=== PATIENT | female | born 1980 | race Caucasian/White ===

== ENCOUNTER 2021-05-26 18:16 | Emergency (ER) | payer BC ==
[2021-05-26 18:51] LABS: Absolute Neutrophil Ct (ANC) 6.85 (1.4-6.9); Basophil (Absolute #) 0.02 (0-0.4); Eosinophil % 0.1 % (0.00-5.0); Eosinophil (Absolute #) 0.01 (0-0.5); Hematocrit 45.9 % (35-47); Hemoglobin 15.5 gm/dl (12.0-16.0); Lymphocyte (Absolute #) 0.93 (1.0-4.6); Lymphocytes % 11.6 % (24.0-44.0); Mean Cell Volume 92.4 fl (78-100); Mean Corpuscular Hemoglobin 31.2 pg (26-32); Mean Corpuscular Hgb Concent. 33.8 g/dl (32-36); Mean Platelet Volume 9.9 fl (7.5-11.0); Monocyte (Absolute #) 0.22 (0.0-1.3); Monocytes % 2.7 % (0.0-12.0); Neutrophil % 85.4 % (36.0-66.0); Platelet Count 258 K/mm3 (150-450); Red Blood Count 4.97 M/mm3 (4.1-5.4); Red Cell Distribution Width 13.1 % (11.5-14.0)
[2021-05-26 18:57] LABS: Appearance CLEAR (CLEAR); Bilirubin NEGATIVE (NEGATIVE); Blood NEGATIVE Ery/ul (0-5); Epithelial Cells RARE /HPF (FEW); Glucose NEGATIVE (NEGATIVE); Ketones NEGATIVE (NEGATIVE); Leukocyte Esterase TRACE (NEGATIVE); Nitrite NEGATIVE (NEGATIVE); Protein,Urine Dip NEGATIVE (Negative); Specific Gravity 1.006 (1.005-1.025); Urobilinogen NEGATIVE mg/dL (0-1)
[2021-05-26 19:12] LABS: INFLUENZA A NEGATIVE (NEGATIVE); INFLUENZA B NEGATIVE (NEGATIVE)
[2021-05-26 19:16] LABS: ALBUMIN 4.6 g/dL (3.5-5.0); ALKALINE PHOSPHATASE 82 U/L (38-126); ANION GAP 15.2 MEQ/L (5-15); BLOOD UREA NITROGEN 4 mg/dL (7-17); CHLORIDE 108 mmol/L (98-107); Calcium 9.5 mg/dL (8.4-10.2); Carbon Dioxide 21 mmol/L (22-30); Creatinine 1 0.54 mg/dL (0.52-1.04); EST GLOMERULAR FILTRATION RATE > 60.0 ML/MIN; Glucose 141 mg/dL (74-106); Potassium 3.8 mmol/L (3.5-5.1); SGOT/AST 24 U/L (14-36); SGPT/ALT 28 U/L (0-35); SODIUM 141 mmol/L (137-145); Total Protein 7.8 g/dL (6.3-8.2)
--- NOTE | 2021-05-26 19:20 | ERPHSYRPT ---
- History of Present Illness Time Seen by Provider: 05/26/21 18:30 Source: patient Exam Limitations: no limitations Patient Subjective Stated Complaint: Cough Triage Nursing Assessment: Patient ambulated back to ED and transferred self to bed. Patient A+O X3. Patient's skin pink, warm and dry. Patient complains of cough, occasional SOB and vomited for one week . Patient was seen yesterday at [facility] and tested for Covid which was negative and given an inhaler and medrol dose blade. Patient denies pain or discomfort. Lungs clear a/p martin. Physician History: Patient is a 40-year-old female presents to our ED with complaint of generalized weakness. Symptoms have been going on for approximately 1 week. Patient went t o an [facility]. She was treated with an inhaler and a Medrol Dosepak. Patient states this helped her symptoms. However patient is still coughing. No fever. Patient states she vomited several times last week. Patient tested negative for COVID. Symptoms are mild to moderate in intensity. No specific worsening or improving factors. [place] states he is otherwise healthy. She is a smoker. Patient voices no other complaints or concerns at this time. Timing/Duration: today Severity: moderate Modifying Factors: Improves With: nothing Associated Symptoms: vomiting, cough, No abdominal pain, No shortness of breath (Patient denies shortness of breath at this time.), No chest pain, No fever, No loss of appetite, No malaise, No rash, No syncope, No seizure, No weakness Allergies/Adverse Reactions: No Known Drug Allergies Allergy (Unverified 05/26/21 18:25) Hx Influenza Vaccination/Date Given: No Hx Pneumococcal Vaccination/Date Given: No Immunizations Up to Date: Yes Travel Risk - International Travel Have you traveled outside of the country in past 3 weeks: No - Coronavirus Screening Symptoms: Cough: New Onset, Shortness of Breath, Vomiting/Diarrhea Close contact with a COVID-19 positive Pt in past 14-21 Days: No - Vaccine Status Have you recieved a Covid-19 vaccination: No - Review of Systems Constitutional: No Symptoms, No Fever, No Chills Eyes: No Symptoms Ears, Nose, & Throat: No Symptoms Respiratory: No Symptoms, No Cough, No Dyspnea Cardiac: No Symptoms, No Chest Pain, No Edema, No Syncope Abdominal/Gastrointestinal: No Symptoms, No Abdominal Pain, No Nausea, No Vomiting, No Diarrhea Genitourinary Symptoms: No Symptoms, No Dysuria Musculoskeletal: No Symptoms, No Back Pain, No Neck Pain Skin: No Symptoms, No Rash Neurological: No Symptoms, No Dizziness, No Focal Weakness, No Sensory Changes Psychological: No Symptoms Endocrine: No Symptoms Hematologic/Lymphatic: No Symptoms Immunological/Allergic: No Symptoms All Other Systems: Reviewed and Negative - Past Medical History Pertinent Past Medical History: No Neurological History: No Pertinent History ENT History: No Pertinent History Cardiac History: No Pertinent History Respiratory History: No Pertinent History Endocrine Medical History: No Pertinent History Musculoskeletal History: No Pertinent History GI Medical History: No Pertinent History History: No Pertinent History Psycho-Social History: No Pertinent History Female Reproductive Disorders: No Pertinent History - Past Surgical History Past Surgical History: Yes Neuro Surgical History: No Pertinent History Cardiac: No Pertinent History Respiratory: No Pertinent History Gastrointestinal: Cholecystectomy Genitourinary: No Pertinent History Musculoskeletal: Orthopedic Surgery Female Surgical History: Tubal Ligation Other Surgical History: back and left arm sugery - Social History Smoking Status: Current every day smoker How long have you smoked: years Exposure to second hand smoke: Yes Drug Use: none Patient Lives Alone: No - Female History Hx Last Menstrual Period: last month Hx Now: No - Nursing Vital Signs Nursing Vital Signs: Initial Vital Signs Temperature 98.3 F 05/26/21 18:26 Pulse Rate 102 H 05/26/21 18:26 Respiratory Rate 18 05/26/21 18:26 Blood Pressure 137/77 05/26/21 18:26 O2 Sat by Pulse Oximetry 100 05/26/21 18:26 Pain Scale Pain Intensity 0 - Physical Exam General Appearance: no apparent distress, alert Eye Exam: PERRL/EOMI, eyes nml inspection Ears, Nose, Throat Exam: normal ENT inspection, TMs normal, pharynx normal, moist mucous membranes Neck Exam: normal inspection, non-tender, supple, full range of motion Respiratory Exam: normal breath sounds, lungs clear, airway intact, No respiratory distress Cardiovascular Exam: regular rate/rhythm, normal heart sounds, normal peripheral pulses Gastrointestinal/Abdomen Exam: soft, normal bowel sounds, No tenderness, No mass Back Exam: normal inspection, normal range of motion, No CVA tenderness, No vertebral tenderness Extremity Exam: normal inspection, normal range of motion, pelvis stable Neurologic Exam: alert, oriented x 3, cooperative, normal mood/affect, nml cerebellar function, nml station & gait, sensation nml, No motor deficits Skin Exam: normal color, warm, dry, No rash Lymphatic Exam: No adenopathy SpO2 Interpretation: normal SpO2: 100 O2 Delivery: Room Air - Course Nursing assessment & vital signs reviewed: Yes - Radiology Exams Chest X-ray Interpretation: Interpreted by me (Subtle right middle lobe infiltrate versus atelectasis. Normal cardiac silhouette. Intact bony thorax.) Ordered Tests: Active Orders 24 hr Category Date Time Status CHEST 1 VIEW (PORTABLE) Stat Exams 05/26/21 18:27 Taken CBC W DIFF Stat Lab 05/26/21 18:45 Completed CMP Stat Lab 05/26/21 18:45 Received INFLUENZA A+B JUAREZ Stat Lab 05/26/21 18:36 Completed UA W/RFX UR CULTURE Stat Lab 05/26/21 18:27 Completed Lab/Rad Data: Laboratory Result Diagrams 05/26/21 18:45 Laboratory Results 05/26/21 05/26/21 05/26/21 Range/Units 18:45 18:36 18:27 WBC 8.0 (4.0-10.5) K/mm3 RBC 4.97 (4.1-5.4) M/mm3 Hgb 15.5 (12.0-16.0) gm/dl Hct 45.9 (35-47) % MCV 92.4 (78-100) fl MCH 31.2 (26-32) pg MCHC 33.8 (32-36) g/dl RDW 13.1 (11.5-14.0) % Plt Count 258 (150-450) K/mm3 MPV 9.9 (7.5-11.0) fl Gran % 85.4 H (36.0-66.0) % Eos # (Auto) 0.01 (0-0.5) Absolute Lymphs (auto) 0.93 L (1.0-4.6) Absolute Monos (auto) 0.22 (0.0-1.3) Lymphocytes % 11.6 L (24.0-44.0) % Monocytes % 2.7 (0.0-12.0) % Eosinophils % 0.1 (0.00-5.0) % Basophils % 0.2 (0.0-0.4) % Absolute Granulocytes 6.85 (1.4-6.9) Basophils # 0.02 (0-0.4) Urine Color YELLOW (YELLOW) Urine Appearance CLEAR (CLEAR) Urine pH 6.0 (5-6) Ur Specific [place] 1.006 (1.005-1.025) Urine Protein NEGATIVE (Negative) Urine Ketones NEGATIVE (NEGATIVE) Urine Blood NEGATIVE (0-5) Seth/ul Urine Nitrite NEGATIVE (NEGATIVE) Urine Bilirubin NEGATIVE (NEGATIVE) Urine Urobilinogen NEGATIVE (0-1) mg/dL Ur Leukocyte Esterase TRACE (NEGATIVE) Urine WBC (Auto) 3-5 (0-5) /HPF Urine RBC (Auto) NONE (0-2) /HPF U Epithel Cells (Auto) RARE (FEW) /HPF Urine Bacteria (Auto) NONE (NEGATIVE) /HPF Urine Culture Reflexed NO (NO) Urine Glucose NEGATIVE (NEGATIVE) mg/dL Influenza Type A Ag NEGATIVE (NEGATIVE) Influenza Type B Ag NEGATIVE (NEGATIVE) - Progress Progress: improved Progress Note: X-ray suggestive of possible right middle lobe infiltrate. Otherwise negative chest x-ray. Laboratory work-up essentially nonremarkable. UA negative. We will discharge patient with a prescription for Z-Blade. Patient agrees to follow- up with primary care doctor within 48 hours for reevaluation. Patient voices no other complaints concerns at this time. Patient states he is ready for discharge. Portions of this note were created with voice recognition technology. There may be grammatical, spelling, punctuation or sound alike errors 05/26/21 19:24 Counseled pt/family regarding: lab results, diagnosis, need for follow-up, rad results - Departure Departure Disposition: Home Clinical Impression: Cough, Fatigue, Pneumonia Condition: Stable Critical Care Time: No Referrals: CLAIR FAIRBANKS NP [Primary Care Provider] - Follow up/PCP as directed Additional Instructions: Discharge/Care Plan OSMAN RAJPUT was seen on 05/26/21 in the Emergency Room. The patient was counseled regarding Diagnosis,Lab results, Imaging studies, need for follow up and when to return to the Emergency Room. Prescriptions given: Discharge Note I have spoken with the patient and/or caregivers. I have explained the patient's condition, diagnosis and treatment plan based on the information available to me at this time. I have answered the patient's and/or caregiver's questions and addressed any concerns. The patient and/or caregivers have as good understanding of the patient's diagnosis, condition and treatment plan as can be expected at this point. The vital signs have been stable. The patient's condition is stable and appropriate for discharge from the emergency department. The patient will pursue further outpatient evaluation with the primary care physician or other designated or consulting physician as outlined in the discharge instructions. The patient and/or caregivers are agreeable to this plan of care and follow-up instructions have been explained in detail. The patient an d/or caregivers have received these instruction. The patient/and or caregivers are aware that any significant change in condition or worsening of symptoms should prompt an immediate return to this or the closest emergency department or call 911. Prescriptions: Azithromycin 250 mg [Zithromax 250 MG TABLET] 250 mg PO ZPACK #6 tablet
[2021-05-26 19:33] VITALS: BP 126/83; PULSE 80; O2SAT 98
--- NOTE | 2021-05-27 08:40 | XRAY ---
Indication: Flu like symptoms 2 weeks. Weakness. Comparison: April 11, 2019. Portable chest is now clear again with incidental tiny left upper lobe calcified granuloma. Heart and mediastinal structures within normal limits. Bony thorax intact. Impression: Nonacute chest with chronic features.
== END 2021-05-26 19:33 | disposition home or self-care (01) ==
LOC: ED 18:16
DX: J18.9 Pneumonia, unspecified organism (principal); R05.9 Cough, unspecified; R53.83 Other fatigue; R11.11 Vomiting without nausea; Z72.0 Tobacco use
CPT/HCPCS: 36415; 71045; 80053; 81001; 85025; 87400; 99284

== ENCOUNTER 2021-10-27 10:32 | Day surgery (SDC) | payer BC ==
[~2021-10-27 10:32] MED LIST: Lactated Ringers 1,000 ML IV SCH
--- NOTE | 2021-10-27 10:57 | HP ---
PROCEDURE DATE: 10/27/2021 HISTORY OF PRESENT ILLNESS: Patient is a 41 y/o with last colonoscopy 10 years ago. Has had polyps. She had a hemorrhoid. She had some transient rectal bleeding. No more bleeding now. No pain. No change in bowel movements currently. Family history of colon cancer. CURRENT MEDICATIONS: None on a regular basis. ALLERGIES: FOOD ALLERGIES. NKDA. PAST SURGICAL HISTORY: She had a cholecystectomy and arm surgery, back surgery. SOCIAL HISTORY: Denies alcohol abuse. REVIEW OF SYSTEMS: 14 systems reviewed. No chest pain or palpitations. Other systems negative or noncontributory other than above and per preadmission questionnaire. PHYSICAL EXAMINATION: GENERAL: No acute distress. HEENT: Sclerae nonicteric. NECK: No JVD. CHEST: Equal excursion. Nonlabored breathing. CVS: Regular rate and rhythm. ABDOMEN: Soft. No peritoneal signs. EXTREMITIES: No significant edema. NEURO: Alert and oriented, moving extremities symmetrically. PSYCH: Full mood and affect. RECTAL: Deferred until time of endoscopy exam. IMPRESSION: 1. HISTORY OF POLYPS. NEED FOR FOLLOW-UP SCREENING COLONOSCOPY. FEEL SHE IS A CANDIDATE. Shown the risk sheet. Explained the procedure in detail including bleeding; infection; risk of bowel injury or perforation possibly requiring open procedure; risk of missed or nondiagnosis or incomplete exam possibly requiring barium enema or other studies or procedures; general risk of anesthesia or sedation; risk of bowel prep, but not limited to. Consent obtained. Will proceed with outpatient follow-up screening colonoscopy.
[2021-10-27] MEDS ORDERED: Xylocaine-Mpf 2% 5 Ml Vial ONE (12:38)
[2021-10-27] MEDS ORDERED: DIPRIVAN 200 MG/20 ML IV ONE ×2 (12:38→12:52)
[2021-10-27 13:52] VITALS: O2SAT 99
[2021-10-27 14:09] VITALS: BP 109/62; PULSE 72
--- NOTE | 2021-10-28 14:44 | OP ---
SURGERY DATE: 10/27/2021 SURGERY TIME: 1242 PREOPERATIVE DIAGNOSIS: 1. HISTORY OF POLYPS. POSTOPERATIVE DIAGNOSIS: 1. MULTIPLE COLON POLYPS. 2. DIVERTICULOSIS. 3. FAIR BOWEL PREP. 4. ASA II. 5. WITHDRAWAL TIME APPROXIMATELY 12 MINUTES. PROCEDURE: 1. Colonoscopy to cecum. 2. Hot snare polypectomy transverse colon polyps X 2. 3. Hot biopsy polypectomy of the sigmoid colon, one was removed in piecemeal fashion in 3 small pieces. 4. Hot biopsy polypectomy of 3 additional sigmoid colon polyps. 5. Hot biopsy polypectomy of 2 small rectal polyps X 2. 6. Cold biopsy of patchy area of inflammation vs prep irritation sigmoid colon. SURGEON: Dr. Tyler Faulkner. ANESTHESIA: MAC. ESTIMATED BLOOD LOSS: Minimal. INDICATIONS: As noted above. Risks and benefits explained in detail, but not limited to. Consent obtained. DESCRIPTION OF PROCEDURE AND FINDINGS: The patient as taken to the OR. MAC anesthesia induced. After official time-out, no disagreement in planned procedure. Digital rectal exam did not reveal any rectal masses. Video colonoscope inserted and passed up through the tortuous sigmoid, descending, transverse, and ascending colon. With external pressure, the scope was passed to the sigmoid, descending, transverse, ascending colon and cecum. Appendiceal orifice was not well visualized. Prep overall was fair with liquidy semi-solid stool suction irrigated as clear as possible. The scope was slowly, carefully withdraw, almost 12 minutes. Two polyps about 3.5-4 mm in size removed with hot snare polypectomy and brief bursts of cautery. Good hemostasis was noted. Staff said they were retrieved. Scope pulled back to the sigmoid colon. Left colon did have some diverticulosis. Scope pulled back to sigmoid colon. There was a little bit of a polyp on a fold that was a little bit sessile in nature. Was removed in 3 pieces with hot biopsy polypectomy and brief bursts of cautery. Good hemostasis noted. Otherwise, 3 other small early polyps vs hyperplastic lesions with hot biopsy forceps and brief bursts of cautery. Good hemostasis noted. Two small early polyps in the rectum vs hyperplastic lesions removed with the hot biopsy forceps and brief bursts of cautery. Good hemostasis noted. Patient tolerated the procedure well. There were no immediate complications. The findings are ASA II. There was no family to discuss any findings with.
== END 2021-10-27 14:05 | disposition home or self-care (01) ==
LOC: SDC 10:32
PROVIDERS: ATTEND Surgery
DX: Z09 Encounter for follow-up examination after completed treatment for conditions other than malignant neoplasm (principal); Z86.010 Personal history of colon polyps; Z80.0 Family history of malignant neoplasm of digestive organs; K57.90 Diverticulosis of intestine, part unspecified, without perforation or abscess without bleeding; D12.7 Benign neoplasm of rectosigmoid junction; D12.5 Benign neoplasm of sigmoid colon; D12.3 Benign neoplasm of transverse colon
CPT/HCPCS: 81025; J2704

== ENCOUNTER 2022-10-25 18:21 | Emergency (ER) | payer BC ==
[2022-10-25 18:34] VITALS: BP 144/90; PULSE 95; O2SAT 100
[2022-10-25] MEDS ORDERED: BACTRIM DS TABLET PO ONE ×2 (18:59→19:18)
[2022-10-25] MEDS ORDERED: Adacel Vial IM ONE ×2 (19:01→19:18)
--- NOTE | 2022-10-25 19:08 | ERPHSYRPT ---
- History of Present Illness Time Seen by Provider: 10/25/22 18:39 Source: patient Exam Limitations: no limitations Patient Subjective Stated Complaint: pt reports possible spider/insect bite on her left third toe, reports swelling and pain with weight bearing Triage Nursing Assessment: pt is aox3, pupils perrl, afebrile, resps easy and non labored, radial pulses strong and equal, cap refill < 3 seconds, pt skin pink warm dry. pt with redness and swelling to the dorsal left third toe. skin is intact at this time with a small area that appears to be a blister. Physician History: 42 years old female presented in the ER with chief complaint of blister left third toe and swelling of toe and distal foot. Started couple of days ago and gradually worsening with mild dull aching pain with ambulation. No fever or chi lls reported. Patient thinks she probably have insect bite but is not sure. Unsure about tetanus status. Timing/Duration: day(s) (2), gradual onset, worse Quality: painful Severity: mild Location: feet Associated Symptoms: blisters, rash, swelling/mass/lumps Allergies/Adverse Reactions: No Known Drug Allergies Allergy (Verified 10/25/22 18:34) Hx Tetanus, Diphtheria Vaccination/Date Given: No Hx Influenza Vaccination/Date Given: No Hx Pneumococcal Vaccination/Date Given: No Immunizations Up to Date: No Travel Risk - International Travel Have you traveled outside of the country in past 3 weeks: No - Coronavirus Screening Are you exhibiting any of the following symptoms?: No Close contact with a COVID-19 positive Pt in past 14-21 Days: No - Vaccine Status Have you recieved a Covid-19 vaccination: No - Review of Systems Constitutional: No Symptoms Ears, Nose, & Throat: No Symptoms Respiratory: No Symptoms Cardiac: No Symptoms Musculoskeletal: Injury Skin: Cellulitis, Skin Lesions Neurological: No Symptoms Hematologic/Lymphatic: No Symptoms Immunological/Allergic: No Symptoms - Past Medical History Pertinent Past Medical History: No Neurological History: No Pertinent History ENT History: No Pertinent History Cardiac History: No Pertinent History Respiratory History: No Pertinent History Endocrine Medical History: No Pertinent History Musculoskeletal History: No Pertinent History GI Medical History: Irritable Bowel History: No Pertinent History Psycho-Social History: No Pertinent History Female Reproductive Disorders: No Pertinent History Other Medical History: smoker - Past Surgical History Past Surgical History: Yes Neuro Surgical History: No Pertinent History Cardiac: No Pertinent History Respiratory: No Pertinent History Gastrointestinal: Cholecystectomy Genitourinary: No Pertinent History Musculoskeletal: Orthopedic Surgery Female Surgical History: Tubal Ligation Other Surgical History: back and left arm sugery - Social History Smoking Status: Current every day smoker How long have you smoked: 25 Exposure to second hand smoke: Yes Drug Use: none Patient Lives Alone: No - Female History Hx Now: No - Nursing Vital Signs Nursing Vital Signs: Initial Vital Signs Temperature 98.3 F 10/25/22 18:25 Pulse Rate 95 H 10/25/22 18:25 Respiratory Rate 18 10/25/22 18:25 Blood Pressure 144/90 10/25/22 18:25 O2 Sat by Pulse Oximetry 100 10/25/22 18:25 Pain Scale Pain Intensity 0 - Physical Exam General Appearance: no apparent distress Eye Exam: PERRL/EOMI Ears, Nose, Throat Exam: normal ENT inspection Neck Exam: normal inspection, supple, full range of motion Respiratory Exam: normal breath sounds, lungs clear Cardiovascular Exam: regular rate/rhythm, normal heart sounds Extremity Exam: normal range of motion, inflammation, swelling (Right third toe half centimeter blister with erythema of third toe and distal foot. Blanchable. Mild tenderness.) Neurologic Exam: alert, oriented x 3, cooperative Skin Exam: normal color SpO2 Interpretation: normal SpO2: 100 O2 Delivery: Room Air Ordered Tests: Medication Summary Discontinued Medications Generic Name Dose Route Start Last Admin Trade Name Freq PRN Reason Stop Dose Admin Diphtheria/Tetanus/Acell Pertussis 0.5 ml 10/25/22 19:01 Tdap --Diph,Pertuss(Acell),Tet Vac/Pf 0.5 Ml Vial IM 10/25/22 19:02 .ONCE ONE Trimethoprim/Sulfamethoxazole 1 tab 10/25/22 18:59 Smz/Tmp Ds Tablet 1 Tablet PO 10/25/22 19:00 STAT ONE - Progress Progress: unchanged Progress Note: 10/25/22 19:06 42 years old female presented in the ER with chief complaint of blister left third toe and swelling of toe and distal foot. Started couple of days ago and gradually worsening with mild dull aching pain with ambulation. No fever or chills reported. Patient thinks she probably have insect bite but is not sure. Unsure about tetanus status. I believe patient is having cellulitis either from skin lesion or insect bite. Started on Bactrim. Updated tetanus. Outpatient follow-up recommended. Counseled pt/family regarding: diagnosis, need for follow-up Medical Desision Making - Risk of complications The pt has a mod risk of morbidity or mortality based on: Need for prescription drug management - Departure Departure Disposition: Home Clinical Impression: Cellulitis of foot, left Condition: Stable Critical Care Time: No Referrals: CLAIR FAIRBANKS NP [Primary Care Provider] - Follow up with PCP 1 day SHABBIR MUNGUIA DPM [ACTIVE STAFF] - Follow up/PCP as directed (1-2 days for reevaluation) Instructions: MRSA (DC), Insect Bites and Stings (DC) Additional Instructions: Take Tylenol/ibuprofen as needed. Follow-up with primary care/podiatry for reevaluation. Return to ER for any worsening. Prescriptions: Smz/Tmp Ds Tablet [Bactrim Ds Tablet] 1 udtab PO BID #14 tablet
== END 2022-10-25 19:55 | disposition home or self-care (01) ==
LOC: ED 18:21
DX: L03.116 Cellulitis of left lower limb (principal); M79.675 Pain in left toe(s); Z28.310 Unvaccinated for COVID-19; Z72.0 Tobacco use; Z23 Encounter for immunization
CPT/HCPCS: 90471; 90715; 99282; A9270-GY